=== PATIENT | female | born 1970 | race Caucasian/White ===

== ENCOUNTER 2020-09-11 14:26 | Emergency (ER) | payer OTHER, SELFPAY ==
--- NOTE | 2020-09-11 14:30 | ED.LOWEXIN ---
HPI - Extremity Injury (Lower) General Chief Complaint: Extremity Injury, Lower Stated Complaint: L CALF INJURY Time Seen by Provider: 09/11/20 14:31 Source: patient and RN notes reviewed History of Present Illness HPI Narrative: Patient is a 50-year-old female who presents the urgent care with complaints of left calf pain. Patient states that yesterday she slipped down a step but does not recall specific trauma or injury to the calf. Patient states that yesterday she was having increased pain with walking, as well as some slight swelling to the left calf. Patient reports of mild tenderness to the calf. States that she has been taking ibuprofen and did immediately ice the leg after the fall. Patient denies of any history of blood clot. Patient is low risk for DVT. No other acute complaints. No acute distress noted. Patient aware of the plan of care. Some parts of this dictation were generated by voice recognition software and may contain typographical and/or grammatical inaccuracies. Related Data Allergies Allergy/AdvReac Type Severity Reaction Status Date / Time No Known Allergies Allergy Unverified 09/20/12 10:57 Review of Systems Review of Systems: Narrative: CONSTITUTIONAL: Denies fever, chills, or sweats. EYES: Denies visual changes, redness, or discharge. ENT: Denies rhinorrhea, congestion, sore throat, or otalgia. CARDIOVASCULAR: Denies chest pain, palpitations, or edema. RESPIRATORY: Denies cough or dyspnea. GASTROINTESTINAL: Denies abdominal pain, nausea, vomiting, or diarrhea. GENITOURINARY: Denies dysuria or hematuria. SKIN: Denies rash or itching. MUSCULOSKELETAL: Reports of left calf pain and tenderness NEUROLOGIC: Denies headache, numbness, or weakness. All other systems reviewed are negative, except as documented in HPI. PMFSH Comments At the time of my signature, I reviewed and agree with the nursing past medical, surgical, social, and family history. There is no relevant family history pertinent to the patient complaint. Exam Narrative: Exam Narrative: GENERAL: This is a well-nourished, well-developed patient, in no apparent distress. HEAD: normocephalic, atraumatic. EYES: PERRL. Sclera clear/white. Vision is grossly intact. EARS: External ears normal NOSE: External nose normal with no obvious nasal discharge, nares without redness, no rhinorrhea. THROAT: Mucous membranes moist NECK: Neck supple CARDIOVASCULAR: Regular rate and rhythm without murmurs, gallops, or rubs. RESPIRATORY: Clear to auscultation. Breath sounds equal bilaterally. No wheezes, rales, or rhonchi. SKIN: warm, intact with no suspicious lesions or rash, good texture and turgor. NEURO: awake, alert, and oriented to person, place and time. There were no obvious focal neurologic abnormalities. EXTREMITIES: Mild left calf tenderness with medial left calf mild edema without ecchymosis or erythema. No warmth to the left calf. Positive left Homans' sign. Unable to determine injury pain versus DVT. Positive strong left pedal pulse with capillary refill less than 2 seconds. Range of motion to left lower extremity within normal limits with moderate exacerbated pain with heel flexion or weightbearing Course Vital Signs Vital signs: Vital Signs Temperature 98.7 F 09/11/20 14:34 Pulse Rate 86 09/11/20 14:34 Respiratory Rate 16 09/11/20 14:34 Blood Pressure 141/66 H 09/11/20 14:34 Pulse Oximetry 98 09/11/20 14:34 Temperature 98.7 F 09/11/20 14:34 Pulse Rate 86 09/11/20 14:34 Respiratory Rate 16 09/11/20 14:34 Blood Pressure 141/66 H 09/11/20 14:34 Pulse Oximetry 98 09/11/20 14:34 Reviewed?patient is informed that they may have pre-hypertension or hypertension based on a blood pressure reading in the department. I recommend the patient call the primary care provider listed on their discharge instructions or a physician of their choice this week to arrange follow-up for further evaluation of possible pre-hyp
[2020-09-11 14:34] VITALS: BP 141/66; PULSE 86; RESP 16; TEMP 37.1; O2SAT 98
== END 2020-09-11 14:49 | disposition left against medical advice (07) ==
PROVIDERS: Emergency Provider Nurse Practitioner Family; PCP Internal Medicine
DX: M79.662 Pain in left lower leg (principal); M10.9 Gout, unspecified
CPT/HCPCS: 99212; G0463